=== PATIENT | female | born 1995 | race Hispanic/Latino ===

== ENCOUNTER 2022-11-10 09:36 | Inpatient (IN) | payer OTHER ==
[2022-11-10] MEDS ORDERED: Lactated Ringer's 1,000 ML IV SCH (09:55)
[2022-11-10] MEDS ORDERED: Bicitra 30 ML UDCUP PO PRN (09:55)
[2022-11-10] MEDS ORDERED: Ondansetron PF 4 MG/2 ML Vial IVP PRN ×4 (09:55→16:16)
[2022-11-10] MEDS ORDERED: Promethazine HCl 25 MG/ML VIAL IM PRN ×4 (09:55→16:16)
[2022-11-10] MEDS ORDERED: hydrALAZINE 20 MG/ML VIAL SLOW IVP PRN ×2 (09:55→16:16)
[2022-11-10] MEDS ORDERED: Famotidine/PF 20 mg/2ml Vial SLOW IVP PRN (09:55)
[2022-11-10] MEDS ORDERED: CEFAZOLIN 3 GM in Sodium Chloride 0.9% 100 ML IVPB SCH (10:00)
[2022-11-10 10:19] VITALS: BMI 57.6
[2022-11-10] MEDS ORDERED: PHENYLEPHRINE-NS 100 MCG/ML 10 ML SYRINGE ONE (10:26)
[2022-11-10] MEDS ORDERED: Morphine PF 10 MG/10 ML VIAL ONE (10:26)
[2022-11-10] MEDS ORDERED: Ondansetron PF 4 MG/2 ML Vial ONE (10:26)
[2022-11-10] MEDS ORDERED: ePHEDrine Sulfate 50 MG/10 ML VIAL ONE (10:26)
[2022-11-10] MEDS ORDERED: Oxytocin 10 UNITS/ML VIAL ONE (10:27)
[2022-11-10] MEDS ORDERED: Phenylephrine 40 MG/NS 250 ML 250 ML ONE (10:27)
[2022-11-10] MEDS ORDERED: Ketorolac Tromethamine 30 MG/ML VIAL ONE (10:27)
[2022-11-10] MEDS ORDERED: Naloxone HCl 0.4 mg/ml Vial IVP PRN ×2 (10:36)
[2022-11-10] MEDS ORDERED: Ondansetron HCl/PF 4 MG/2 ML Vial IVP PRN (10:36)
[2022-11-10] MEDS ORDERED: Naloxone HCl 0.4 mg/ml Vial IV PRN ×2 (10:36→14:02)
[2022-11-10] MEDS ORDERED: Fentanyl 100 MCG/2 ML VIAL SLOW IVP PRN (10:36)
[2022-11-10] MEDS ORDERED: Meperidine HCl/PF 25 MG/ML VIAL SLOW IVP PRN (10:36)
[2022-11-10] MEDS ORDERED: Promethazine HCl 25 MG SUPP PR PRN (10:36)
[2022-11-10] MEDS ORDERED: diphenhydrAMINE 50 MG/ML VIAL IVP PRN ×2 (10:36→14:02)
[2022-11-10] MEDS ORDERED: Moisturizing Cream (Eucerin) 113 GM JAR TOP PRN (10:36)
[2022-11-10 10:38] LABS: Hemoglobin 12.3 g/dL (12.0-15.5); Mean Corpuscular HGB CONC 35.4 g/dL (32.0-36.0); Mean Corpuscular Hemoglobin 30.1 pg (27.0-33.0); Mean Corpuscular Volume 84.8 fl (81.6-98.3); Mean Platelet Volume 11.7 fl (7.4-10.4); Platelet Count 237 10x3/uL (150-450); Red Blood Cell (RBC) Count 4.09 10x6/uL (3.90-5.03); White Blood Cell (WBC) Count 8.2 10x3/uL (3.5-10.5)
[2022-11-10] MEDS ORDERED: Communication Order-Pharmacy FS SCH (10:45)
[2022-11-10 11:09] LABS: SARS-CoV-2 NAA Rapid Test Not Detected (NotDetected)
[2022-11-10 11:24] LABS: Syphilis Antibody Nonreactive (Nonreactive); Syphilis Antibody Index 0.05 S/CO (<1.00 Non-Reactive)
[2022-11-10 11:25] LABS: HBSAg Index 0.17 S/CO (0-0.99); Hep B Surf Ag Non-Reactive S/CO (NonReactive)
[2022-11-10] MEDS ORDERED: Albumin 25% 25 GM/100 ML BOT IVPB PRN (11:30)
[2022-11-10] MEDS ORDERED: Tranexamic Acid 1,000 MG/10 ML VIAL ONE ×2 (12:47→13:22)
[2022-11-10] MEDS ORDERED: Fentanyl 250 MCG/5 ML VIAL ONE (12:48)
[2022-11-10] MEDS ORDERED: Midazolam HCl 2 mg/2 ml Vial ONE (12:53)
[2022-11-10] MEDS ORDERED: Methylergonovine 0.2 MG/ML VIAL ONE (12:56)
[2022-11-10] MEDS ORDERED: Carboprost 250 MCG/ML AMP ONE (12:56)
[2022-11-10] MEDS ORDERED: PROPOFOL 20 ML ONE (13:05)
[2022-11-10] MEDS ORDERED: PROPOFOL 40 ML ONE (13:20)
[2022-11-10] MEDS ORDERED: diphenhydrAMINE 25 MG CAP PO PRN ×2 (14:02→16:16)
[2022-11-10] MEDS ORDERED: Zolpidem Tartrate 5 MG TAB PO PRN (14:02)
[2022-11-10] MEDS ORDERED: diphenhydrAMINE 50 MG/ML VIAL IM PRN (14:02)
[2022-11-10] MEDS ORDERED: FENTANYL 500 MCG/10 ML VIAL 2,000 MCG in Sodium Chloride 0.9% 60 ML IV PRN (14:02)
[2022-11-10] MEDS ORDERED: Communication Order-Pharmacy FS PRN (14:15)
[2022-11-10] MEDS: FENTANYL 500 MCG/10 ML VIAL 1,000 MCG in Sodium Chloride 0.9% 30 ML IV PRN (15:06)
[2022-11-10] MEDS ORDERED: Boostrix 0.5 ML (Tdap) VIAL (>/=7 yrs of age) IM ONE (16:16)
[2022-11-10] MEDS ORDERED: Acetaminophen 325 MG TAB PO PRN (16:16)
[2022-11-10] MEDS ORDERED: Methylergonovine 0.2 MG/ML VIAL IM PRN (16:16)
[2022-11-10] MEDS ORDERED: Bisacodyl 10 MG SUPP PR PRN (16:16)
[2022-11-10] MEDS ORDERED: Misoprostol 200 MCG TAB PR PRN (16:16)
[2022-11-10] MEDS ORDERED: NS w/ Oxytocin 30 units 500 ML IV SCH (16:16)
[2022-11-10] MEDS ORDERED: HYDROcodone/Acetaminophen 5/325 mg Tablet PO PRN (16:16)
[2022-11-10] MEDS: Lactated Ringer's 1,000 ML IV SCH (18:01)
[2022-11-10] MEDS: metroNIDAZOLE 500 MG in Premix Bag 1 BAG IVPB SCH (18:01)
[2022-11-10] MEDS ORDERED: Ketorolac Tromethamine 30 MG/ML VIAL IVP SCH (18:30)
[2022-11-10] MEDS: CEFAZOLIN 2 GM in Sodium Chloride 0.9% 100 ML IVPB SCH (19:06)
[2022-11-10] MEDS: Docusate 100 MG CAP PO SCH (23:25)
[2022-11-10] MEDS: Ferrous Sulfate 325 MG TAB PO SCH (23:25)
[2022-11-11] MEDS: FENTANYL 500 MCG/10 ML VIAL 1,000 MCG in Sodium Chloride 0.9% 30 ML IV PRN (00:24)
[2022-11-11] MEDS: metroNIDAZOLE 500 MG in Premix Bag 1 BAG IVPB SCH ×3 (01:07→16:24)
[2022-11-11] MEDS: Ketorolac Tromethamine 30 MG/ML VIAL IVP PRN ×2 (01:14→11:04)
[2022-11-11] MEDS: CEFAZOLIN 2 GM in Sodium Chloride 0.9% 100 ML IVPB SCH ×3 (01:58→17:19)
[2022-11-11] MEDS: Simethicone Chewable 80 MG TAB PO PRN ×2 (05:18→17:15)
[2022-11-11 05:26] LABS: Hemoglobin 9.4 g/dL (12.0-15.5); Mean Corpuscular HGB CONC 34.8 g/dL (32.0-36.0); Mean Corpuscular Hemoglobin 30.3 pg (27.0-33.0); Mean Corpuscular Volume 87.1 fl (81.6-98.3); Mean Platelet Volume 11.5 fl (7.4-10.4); Platelet Count 174 10x3/uL (150-450); White Blood Cell (WBC) Count 7.2 10x3/uL (3.5-10.5)
[2022-11-11] MEDS: Lactated Ringer's 1,000 ML IV SCH ×3 (05:37→16:23)
[2022-11-11] MEDS: Ferrous Sulfate 325 MG TAB PO SCH ×2 (08:48→21:23)
[2022-11-11] MEDS: Prenatal Vitamin 1 TAB PO SCH (08:48)
[2022-11-11] MEDS: Docusate 100 MG CAP PO SCH ×2 (08:48→21:23)
[2022-11-11] MEDS: HYDROcodone/Acetaminophen 5/325 mg Tablet PO PRN ×2 (15:08→18:38)
[2022-11-12] MEDS: metroNIDAZOLE 500 MG in Premix Bag 1 BAG IVPB SCH ×3 (00:04→16:26)
[2022-11-12] MEDS: HYDROcodone/Acetaminophen 5/325 mg Tablet PO PRN ×6 (00:04→21:34)
[2022-11-12] MEDS: Simethicone Chewable 80 MG TAB PO PRN ×2 (00:04→04:41)
[2022-11-12] MEDS: CEFAZOLIN 2 GM in Sodium Chloride 0.9% 100 ML IVPB SCH ×3 (01:35→17:57)
[2022-11-12] MEDS: Lactated Ringer's 1,000 ML IV SCH ×3 (04:37→16:25)
[2022-11-12] MEDS: Ibuprofen 800 MG TAB PO SCH ×3 (04:41→21:33)
[2022-11-12] MEDS: Prenatal Vitamin 1 TAB PO SCH (07:56)
[2022-11-12] MEDS: Docusate 100 MG CAP PO SCH ×2 (07:56→21:33)
[2022-11-12] MEDS: Ferrous Sulfate 325 MG TAB PO SCH ×2 (07:56→21:33)
[2022-11-13] MEDS: metroNIDAZOLE 500 MG in Premix Bag 1 BAG IVPB SCH ×2 (00:59→08:54)
[2022-11-13] MEDS: HYDROcodone/Acetaminophen 5/325 mg Tablet PO PRN ×2 (02:20→08:52)
[2022-11-13] MEDS: CEFAZOLIN 2 GM in Sodium Chloride 0.9% 100 ML IVPB SCH (02:21)
[2022-11-13] MEDS: Ibuprofen 800 MG TAB PO SCH (04:58)
[2022-11-13] MEDS: Lactated Ringer's 1,000 ML IV SCH ×2 (05:21→08:25)
[2022-11-13 07:55] VITALS: BP 126/68; TEMP 98.1
[2022-11-13] MEDS: Docusate 100 MG CAP PO SCH (08:52)
[2022-11-13] MEDS: Ferrous Sulfate 325 MG TAB PO SCH (08:52)
[2022-11-13] MEDS: Prenatal Vitamin 1 TAB PO SCH (08:52)
[2022-11-16] MEDS ORDERED: Ibuprofen 800 MG TAB PO SCH (00:01)
== END 2022-11-13 11:50 | disposition home or self-care (01) | DRG 788 ==
LOC: CSHLD 09:36 → CSHPP 15:57
PROVIDERS: ADMIT Family Medicine; ATTEND Family Medicine
PROC: 10D00Z1 Extraction of Products of Conception, Low, Open Approach (ICD-10-PCS; principal; 2022-11-10)
DX: O34.211 Maternal care for low transverse scar from previous cesarean delivery (principal); Z20.822 Contact with and (suspected) exposure to COVID-19; E66.01 Morbid (severe) obesity due to excess calories; O99.214 Obesity complicating childbirth; Z3A.39 39 weeks gestation of pregnancy; Z37.0 Single live birth; O62.2 Other uterine inertia
CPT/HCPCS: 36415; 51702; 85027; 86780; 87340; J1885; J2250; J2274; J2405; J2590; J2704; J3010; J3490; J7120; U0002

== ENCOUNTER 2022-11-15 18:58 | Emergency (ER) | payer OTHER ==
[~2022-11-15 18:58] MED LIST: Iopamidol 300 61% 100 ML VIAL FS ONE
[2022-11-15 20:27] LABS: #Monocytes 0.4 10x3/uL (0.0-1.1); #Neutrophils 3.6 10x3/uL (1.5-8.4); %Basophils 0.2 % (0.0-2.0); %Eosinophils 0.6 % (0.0-6.0); %Lymphocytes 16.4 % (18.0-47.0); %Monocytes 7.9 % (0.0-10.0); %Neutrophils 74.7 % (40.0-75.0); Hemoglobin 9.3 g/dL (12.0-15.5); Mean Corpuscular HGB CONC 33.8 g/dL (32.0-36.0); Mean Corpuscular Hemoglobin 29.9 pg (27.0-33.0); Mean Corpuscular Volume 88.4 fl (81.6-98.3); Mean Platelet Volume 10.1 fl (7.4-10.4); Platelet Count 278 10x3/uL (150-450); RBC Distribution Width 12.4 % (11.5-14.5); Red Blood Cell (RBC) Count 3.11 10x6/uL (3.90-5.03); White Blood Cell (WBC) Count 4.8 10x3/uL (3.5-10.5)
[2022-11-15 20:42] LABS: ALT (SGPT) 25 U/L (8-55); AST (SGOT) 35 U/L (5-34); Albumin 3.2 g/dL (3.5-5.0); Alkaline Phosphatase 92 U/L (40-110); Anion Gap 12 mmol/L (10-20); BUN (Urea Nitrogen) 8 mg/dL (7.0-18.7); Bilirubin, Total 0.2 mg/dL (0.2-1.2); Calc. Creatinine Clearance 0 mL/min (70-130); Calcium 8.7 mg/dL (7.8-10.44); Carbon Dioxide 24 mmol/L (22-29); Chloride 108 mmol/L (98-107); Estimated GFR 125; Globulin 2.9 g/dL (2.4-3.5); Glucose 81 mg/dL (70-105); Lipase 4 U/L (8-78); Potassium 3.9 mmol/L (3.5-5.1); Protein, Total 6.1 g/dL (6.0-8.3); Sodium 140 mmol/L (136-145)
[2022-11-15 21:27] LABS: Bilirubin Neg (Negative); Blood, Urine 250 (Negative); Clarity Clear (Clear); Glucose, Urine (Dipstick) Normal (Negative); Ketone, Urine Negative (Negative); Leukocyte 100 (Negative); Nitrite Negative (Negative); Protein, Urine (Dipstick) Negative (Neg-Trace); Urobilinogen Normal mg/dL (Less than 2); pH, Urine 6.5 (5.0-9.0)
[2022-11-15] MEDS ORDERED: cefTRIAXone\\ROCEPHIN 1 GM VIAL ONE (21:41)
[2022-11-15 21:53] LABS: Bacteria/HPF None Seen HPF (None Seen); Squamous Epithelial 0-3 HPF (0-3)
== END 2022-11-15 22:39 | disposition home or self-care (01) ==
LOC: CSHERS 18:58
DX: N20.9 Urinary calculus, unspecified (principal); J18.9 Pneumonia, unspecified organism
CPT/HCPCS: 36415; 74177; 80053; 81003; 81015; 83605; 83690; 85025; 96365; J0696; Q9967